=== PATIENT | male | born 1980 | race African-American/Black ===

== ENCOUNTER 2016-09-10 10:28 | Emergency (ER) | payer BC ==
[2016-09-10 10:51] VITALS: TEMP 98.3; BMI 31.0
--- NOTE | 2016-09-10 11:49 | PDOC ---
History of Present Illness - History of Present Illness Initial Comments: 09/10/16 12:05 Patient is a 36 year old male with significant medical hx of HTN who is presenting to the ED with lightheadedness since today. 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 Afterwards he immediately felt lightheaded and dizzy. He stats that he felt weak and slumped over but did not lose consciousness. The patient ate breakfast and a late morning snack; he's been drinking well. The patient recently made changes to his diet and exercise routine because he wants to be taken off medication for high blood pressure. Patient reports he had his medication changed several weeks ago. Denies chest pain, shortness of breath, syncope. <Evita Nielsen - Last Filed: 09/10/16 12:05> <Shante Cedeño - Last Filed: 09/10/16 17:19> - General Chief Complaint: Lightheaded Stated Complaint: DIZZINESS, FATIGUE Time Seen by Provider: 09/10/16 11:18 Past History <Evita Nielsen - Last Filed: 09/10/16 12:05> - Past Medical History HTN: Yes - Psycho/Social/Smoking Cessation Hx Suicidal Ideation: No Smoking History: Never smoked Information on smoking cessation initiated: No <Shante Cedeño - Last Filed: 09/10/16 17:19> - Past Medical History Allergies/Adverse Reactions: Allergies Allergy/AdvReac Type Severity Reaction Status Date / Time No Known Allergies Allergy Verified 09/10/16 10:50 Home Medications: Ambulatory Orders Amlodipine Besylate 5 mg PO DAILY 09/10/16 Review of Systems - Review of Systems Comments:: 09/10/16 12:09 GENERAL/CONSTITUTIONAL: Weakness. No fever or chills. HEAD, EYES, EARS, NOSE AND THROAT: No change in vision. No ear pain or discharge. No sore throat. CARDIOVASCULAR: Lightheadedness. No chest pain or shortness of breath. RESPIRATORY: No cough, wheezing, or hemoptysis. GASTROINTESTINAL: No nausea, vomiting, diarrhea or constipation. GENITOURINARY: No dysuria, frequency, or change in urination. MUSCULOSKELETAL: No joint or muscle swelling or pain. No neck or back pain. SKIN: No rash NEUROLOGIC: Dizziness. No headache, loss of consciousness, or change in strength /sensation. <Evita Nielsen - Last Filed: 09/10/16 12:05> *Physical Exam - Vital Signs Last Vital Signs Temp Pulse Resp BP Pulse Ox 98.3 F 90 18 163/90 99 09/10/16 10:47 09/10/16 10:47 09/10/16 10:47 09/10/16 10:47 09/10/16 10:47 - Physical Exam Comments: 09/10/16 12:11 GENERAL: Awake, alert, and fully oriented, in no acute distress HEAD: No signs of trauma EYES: PERRLA, EOMI, sclera anicteric, conjunctiva clear ENT: Auricles normal inspection, hearing grossly normal, nares patent, oropharynx clear without exudates. Moist mucosa NECK: Normal ROM, supple, no lymphadenopathy, JVD, or masses LUNGS: Breath sounds equal, clear to auscultation bilaterally. No wheezes, and no crackles HEART: Regular rate and rhythm, normal S1 and S2, no murmurs, rubs or gallops ABDOMEN: Soft, nontender, normoactive bowel sounds. No guarding, no rebound. No masses EXTREMITIES: Normal range of motion, no edema. No clubbing or cyanosis. No cords, erythema, or tenderness NEUROLOGICAL: Cranial nerves II through XII grossly intact. Normal speech, normal gait SKIN: Warm, Dry, normal turgor, no rashes or lesions noted. ENDOCRINE: No increased thirst. No abnormal weight change. HEMATOLOGIC/LYMPHATIC: No anemia, easy bleeding, or history of blood clots. ALLERGIC/IMMUNOLOGIC: No hives or skin allergy. <Evita Nielsen - Last Filed: 09/10/16 12:05> - Vital Signs Last Vital Signs Temp Pulse Resp BP Pulse Ox 98.3 F 90 18 163/90 99 09/10/16 10:47 09/10/16 10:47 09/10/16 10:47 09/10/16 10:47 09/10/16 10:47 <Shante Cedeño - Last Filed: 09/10/16 17:19> Heart Score/ECG Review - ECG Impressions Comment:: EKG read 12:56- NSR 79 bpm, no ST changes. Isolated T inv in V6. <Shante Cedeño - Last Filed: 09/10/16 17:19> ED Treatment Course - LABORATORY CBC & Chemistry Diagram: 09/10/16 11:52 09/10/16 11:52 <Shante Cedeño - Last Filed: 09/10/16 17:19> Medical Decision Making - Medical Decision Making Patient states that he has been dieting lately, attempting to have a healthier lifestyle so that he can eventually be taken off of his blood pressure medication. He states that his BPs at home have been 120s-130s/70s-80s, and he notes that he usually checks when he is most active. I counseled him to check daily, but instead to check when he is at rest. I explained that BP varies throughout the day, and that it may be that his lows are too low, causing him these symptoms. CTH showed no acute findings. Labs and EKG wnl. Counseled him to check BPs when he is at rest to see what his lowest values are, as he may need a decrease in his medication. I do not suspect hypoglycemia based on how much he ate this morning (had two meals). F/u with PMD this week. <Shante Cedeño - Last Filed: 09/10/16 17:19> *DC/Admit/Observation/Transfer - Attestations Scribe Attestion: 09/10/16 12:12 Documentation prepared by Evita Nielsen, acting as medical office secretary for Shante Cedeño MD. <Evita Nielsen - Last Filed: 09/10/16 12:05> - Discharge Dispostion Admit: No <Shante Cedeño - Last Filed: 09/10/16 17:19> Diagnosis at time of Disposition: Pre-syncope - Discharge Dispostion Disposition: HOME Condition at time of disposition: Stable - Patient Instructions Printed Discharge Instructions: DI for Dizziness-Nonvertigo
[2016-09-10] MEDS ORDERED: SODIUM CHLORIDE 1,000 ML IV STA (11:50)
[2016-09-10 12:18] LABS: EOSINOPHIL 0.8 % (0-4.5); MCH 23.2 pg (25.7-33.7); MCHC 32.2 g/dl (32.0-35.9); MEAN CELL VOLUME 72.1 fl (80-96); MEAN PLT VOLUME 9.6 fl (7.5-11.1); NEUTROPHILS 67.7 % (42.8-82.8); PLATELET COUNT 203 K/MM3 (134-434); RDW 15.4 % (11.9-15.9); WHITE BLOOD COUNT 5.3 K/mm3 (4.0-10.0)
[2016-09-10 12:44] LABS: ALBUMIN 4.5 g/dl (3.4-5.0); ALK PHOS 76 U/L (45-117); ANION GAP 8 (8-16); BILIRUBIN,TOTAL 0.2 mg/dL (0.2-1.0); CALCIUM 9.5 mg/dL (8.5-10.1); CO2 29 mmol/L (21-32); GLUCOSE,RANDOM 101 mg/dL (74-106); SGPT/ALT 65 U/L (12-78); TOT PROT 8.8 g/dl (6.4-8.2)
[2016-09-10 12:45] LABS: SGOT/AST 30 U/L (15-37)
[2016-09-10 14:56] VITALS: BP 160/90; PULSE 78
--- NOTE | 2016-09-11 17:39 | EKG ---
Test Reason : Blood Pressure : / mmHG Vent. Rate : 079 BPM Atrial Rate : 079 BPM P-R Int : 144 ms QRS Dur : 084 ms QT Int : 338 ms P-R-T Axes : 049 -14 051 degrees QTc Int : 387 ms NORMAL SINUS RHYTHM NONSPECIFIC T WAVE ABNORMALITY ABNORMAL ECG NO PREVIOUS ECGS AVAILABLE Confirmed by KARL MARKS MD ([id number]) on 09/11/2016 5:38:46 PM Referred By: Confirmed By:KARL MARKS MD
== END 2016-09-10 13:45 | disposition home or self-care (01) ==
LOC: JER 10:28
PROC: 3E0337Z Introduction of Electrolytic and Water Balance Substance into Peripheral Vein, Percutaneous Approach (ICD-10-PCS; principal; 2016-09-10)
DX: R55 Syncope and collapse (principal); I10 Essential (primary) hypertension
CPT/HCPCS: 36415; 70450-TC; 80053; 85025; 93005; 93010; 99284-25